=== PATIENT | male | born 1975 | race Caucasian/White ===

== ENCOUNTER 2016-09-14 01:07 | Emergency (ER) | payer BC, SELFPAY ==
[2016-09-14] MEDS ORDERED: Adacel (T-DAP) 0.5 ML VIAL ONE (01:17)
[2016-09-14] MEDS ORDERED: Lidocaine 1% w/Epinephrine 1:100K 20 ML VIAL ONE (01:18)
[2016-09-14] MEDS ORDERED: Bacitracin Zinc 1 Packet ONE (02:01)
--- NOTE | 2016-09-14 02:45 | PICIS ---
[facility] EMERGENCY RECORD TRIAGE (: KAS) TRIAGE NOTES: Laceration right forearm, Patient states he fell into a glass table. Bleeding controlled at this time. (: KASA) PATIENT: NAME: Morris Lynn, AGE: 41, GENDER: male, : [facility] 1975, TIME OF GREET: WedSep 14, 2016 01:08, PREFERRED LANGUAGE: Korean, ETHNICITY: Not or , ECODE BILLING MAP: [facility], SSN: [id number], Zip Code: [address], KG WEIGHT: [phone], PHONE: , , , PERSON ID: [id number], PCP: MD Bo Jacques. (: KASA) COMPLAINT: HURT HAND. (: KASA) ADMISSION: URGENCY: 4 Non Urgent, ADMISSION SOURCE: Home, TRANSPORT: CAR, BED: ER *TR1. (01: KASA) ASSESSMENT: Assessment: Laceration to right forearm, Symptoms began 09/14/2016. (01:15 KASA) PAIN: Patient complains of pain described as, aching, Location Right arm, Pain is constant, Onset was 09/14/2016, No aggravating factors, No efforts tried to relieve symptoms. (01:15 KASA) SIRS SCORING: Heart Rate 55-109 (0), Temp range 96.8-101.1 (0), respiratory rate 12-24 (0), Mental Status altered: no (0). (01:15 KASA) TRIAGE SCREENING: Patient denies suicidal ideation, Patient denies presence of domestic violence. (01:15 KASA) PROVIDERS: TRIAGE NURSE: Emily Yang RN. (01:09 KASA) VITAL SIGNS: BP 139/85, Pulse 102, Resp 22, Temp 98.0, (Oral), Pain 2, O2 Sat 96, on Room Air, Time 09/14/2016 01:11. (01:11 KASA) PREVIOUS VISIT ALLERGIES: No Known Drug Allergies. (01:09 KASA) No Known Drug Allergies. (01:15 KASA) KNOWN ALLERGIES No Known Drug Allergies CURRENT MEDICATIONS (01:35 KASA) lisinopril: TABLET : Strength - 20 mg : ORAL Patient Dose: 25 mg Oral 2 times a day. VITAL SIGNS (01:11 KASA) VITAL SIGNS: BP: 139/85, Pulse: 102, Resp: 22, Temp: 98.0 (Oral), Pain: 2, O2 sat: 96 on Room Air, Time: 09/14/2016 01:11. NURSING ASSESSMENT: EXTREMITY UPPER (:20 KASA) CONSTITUTIONAL: Patient arrives ambulatory, Gait steady, History obtained from patient, Patient appears comfortable, Patient cooperative, Patient alert, Oriented to person, place and time, Skin warm, Skin dry, Skin normal in color, Mucous membranes pink, Mucous membranes moist, Patient complains of Right FA laceration, Laceration right forearm, Patient states he fell into a glass &a-1R&a+25V*p+0X*s8740L*c202B*c15G*c2P*p-0X&a-25V&a+1R Name: Morris Lynn : 1975 M41 MedRec: [id number] AcctNum: [id number] Prepared: WedSep 14, 2016 02:29 by Interface Page 1 of 6 pMD [facility] EMERGENCY RECORD table. Bleeding controlled at this time. LEFT UPPER EXTREMITY: Left upper extremity assessment findings include capillary refill less than 2 seconds, Skin color normal to hand, Skin temperature to hand warm, Distal sensation intact. RIGHT UPPER EXTREMITY: Right upper extremity assessment findings include capillary refill less than 2 seconds, Skin color normal to hand, Skin temperature to hand warm, Distal sensation intact, Inspection findings include laceration, to Right Forearm, length (cm) 5, bleeding controlled, Tendon exposed. SAFETY: Side rails up, Cart/Stretcher in lowest position, Family at bedside, Call light within reach, Hospital ID band on. NURSING PROCEDURE: BEDSIDE RADIOLOGY (:25 KHER) PATIENT IDENTIFIER: Patient actively involved in identification process. BEDSIDE RADIOLOGY: Bedside radiology performed by MARCIA, Portable x-ray performed, of the right forearm. NURSING PROCEDURE: COMMUNICATIONS (:56 KASA) COMMUNICATIONS: Physician, Reason for notification Consult, Returned call at [phone], no orders received, Call received from [facility] with Dr. Nichols on the line to speak with SILVANA. NURSING PROCEDURE: DISCHARGE NOTE (02:15 [facility]) DISCHARGE: Patient discharged to home, ambulating without assistance, family driving, accompanied by parent, Summary of Care printed/ provided, Discharge instructions given to patient, Simple or moderate discharge teaching performed, . Educated and provided handout regarding diagnosis of: Laceration of forearm Follow up with PCP in 1-2 days. Follow up with Specialist is discussed/scheduled. Have sutures removed in 8-10 days., Notes: Ambulated independently out of department in NAD. RR even and unlabored, no sign of discomfort. BELONGINGS: Belongings and valuables with patient upon arrival to the Emergency Department include:, Belongings and valuables with patient at time of discharge include:, Belongings remain with patient, Valuables remain with patient. NURSING PROCEDURE: WOUND CARE (:08 [facility]) PATIENT IDENTIFIER: Patient actively involved in identification process, Patient's identity verified by patient stating name, Patient's identity verified by patient stating date. WOUND CARE: Wound care indicated to promote healing, Wound site: Rigt forearm, Cause of wound: Fall through glass table, Local infiltration with, 1% lidocaine with epinephrine, Wound cleansed with soap and water, Wound repaired with sutures, by Dr. Orta, using 1 &a-1R&a+25V*p+0X*b0838Y*c202B*c15G*c2P*p-0X&a-25V&a+1R Name: Morris yLnn : 1975 M41 MedRec: [id number] AcctNum: [id number] Prepared: WedSep 14, 2016 02:29 by Interface Page 2 of 6 pMD [facility] EMERGENCY RECORD pack of suture. FOLLOW-UP: After procedure, simple dressing applied, using ABD dressing, using telfa pad dressing, wrapped with 4 inch coban, After procedure, capillary refill less than 2 seconds, After procedure, distal circulation intact, After procedure, distal motor intact, After procedure, distal sensation intact, After procedure, distal pulses present, Notes: Post repair -wound periphery cleaned by nurse using NS and patted dry with gauze. SAFETY: Side rails up, Cart/Stretcher in lowest position, Call light within reach, Hospital ID band on. ORDER DETAILS Order Name: XR Forearm Rt 2 View STANDARD, Status: Active, Time: 01:19 09/14/2016, User: PMYE, - Ordered for: DO Orta Paul, - Entered by: DO Orta Paul - WedSep 14, 2016 01:19, - Quantity: 1. MEDICATION ADMINISTRATION SUMMARY Drug Name: Adacel(Tdap Adolesn/Adult)(PF), Dose Ordered: 0.5 mL, Route: Intramuscular, Status: Given, Time: 01:26 09/14/2016, Detailed record available in Medication Service section. MEDICATION SERVICE (01:26 PMYE) Adacel(Tdap Adolesn/Adult)(PF): Order: Adacel(Tdap Adolesn/Adult)(PF) (diphth,pertuss(acell),tet vac/preservative free) - Dose: 0.5 mL : Intramuscular Schedule: Now Ordered by: Tim Orta DO Entered by: Tim Orta DO WedSep 14, 2016 01:25 , Acknowledged by: Emily Yang RN WedSep 14, 2016 01:26 Documented as given by: Emily Yang RN WedSep 14, 2016 01:26 Patient, Medication, Dose, Route and Time verified prior to administration. 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 HPI LACERATION (02:04 PMYE) CHIEF COMPLAINT: Patient presents for evaluation of laceration to arm, on the right, 4.1-8.0cm in &a-1R&a+25V*p+0X*u9766L*c202B*c15G*c2P*p-0X&a-25V&a+1R Name: Morris Lynn : 1975 M41 MedRec: [id number] AcctNum: [id number] Prepared: WedSep 14, 2016 02:29 by Interface Page 3 of 6 pMD NIKI Skinner [facility] EMERGENCY RECORD length, through subcutaneous fascia, 4.1-8.0cm in length, through subcutaneous fascia. HISTORIAN: History provided by patient. MECHANISM OF INJURY: Mechanism of injury fall. LOCATION: Symptoms are localized. QUALITY: Laceration quality straight. SEVERITY: Maximum severity of symptoms mild, Currently symptoms are moderate. TIME COURSE: Sudden onset of symptoms. ASSOCIATED WITH: No associated symptoms. COMPLICATING FACTORS: No complicating factors, no risk for infection. EXACERBATED BY: Patient's condition exacerbated by nothing. RELIEVED BY: Patient's condition relieved by nothing. TETANUS: Tetanus status not up to date. ROS (02:05 PMYE) CONSTITUTIONAL: Negative constitutional review of systems, Historian denies chills, denies fatigue, denies fever. EYES: Negative eye review of systems, Historian denies eye pain, denies eye redness. ENT: Negative ears, nose, throat review of systems, Historian denies dysphasia, denies otalgia, denies sore throat. CARDIOVASCULAR: Negative cardiovascular review of systems, Historian denies chest pain, denies dyspnea on exertion, denies syncope. RESPIRATORY: Negative respiratory review of systems, Historian denies cough, denies shortness of breath, denies wheezing. GI: Negative gastrointestinal review of systems, Historian denies abdominal pain, denies nausea, denies vomiting. MUSCULOSKELETAL: Negative musculoskeletal review of systems, Historian denies back pain, denies neck pain. SKIN: Negative skin review of systems, Historian denies rash. NEUROLOGIC: Negative neurologic review of systems, Historian denies confusion, denies headache, denies paresthesias. PSYCHIATRIC: Negative psychiatric review of systems, Historian denies alcohol abuse, denies drug abuse, denies homicidal ideation, denies suicidal ideation. PAST MEDICAL HISTORY MEDICAL HISTORY: Past medical history includes history of hypertension, which has been treated, Patient is compliant, Past medical history includes history of obesity. (01:15 KASA) Tetanus immunization up to date, Date of immunization: 09/14/2016, Past medical history includes history of hypertension, which has been treated, Patient is compliant, Past medical history includes history of obesity. (01:37 KASA) MALE SURGICAL HISTORY: Surgical history of appendectomy. (01:15 KASA) PSYCHIATRIC HISTORY: No previous psychiatric history. (: KASA) &a-1R&a+25V*p+0X*g5472C*c202B*c15G*c2P*p-0X&a-25V&a+1R Name: Morris Lynn : 1975 M41 MedRec: [id number] AcctNum: [id number] Prepared: WedSep 14, 2016 02:29 by Interface Page 4 of 6 pMD [facility] EMERGENCY RECORD SOCIAL HISTORY: Patient is a former drug user, abused marijuana, abused methamphetamines, Drug history notes: Many years ago per patient, Patient currently uses tobacco, smokes cigarettes, daily, Patient has smoked for 25 years, Patient smokes 1.5 packs per day, Lives at home, with parents, Patient denies alcohol use,. (: KAS) PHYSICAL EXAM (02:05 PMYE) CONSTITUTIONAL: Vital signs reviewed, Patient afebrile, Pulse normal, Blood pressure normal, Respiratory rate normal. HEAD: Head exam normal, Head exam included findings of head atraumatic, normocephalic. EYES: Eye exam normal, Eye exam included findings of eyelids normal to inspection, Pupils equally round and reactive to light, Extraocular muscles intact. ENT: ENT exam normal, Pharynx exam normal, Uvula exam normal, Tonsil exam normal. NECK: Neck exam normal, Neck exam included findings of normal range of motion, Trachea midline. RESPIRATORY CHEST: Respiratory and chest exam normal, No wheezing, No rales, No rhonchi. CARDIOVASCULAR: Cardiovascular assessment normal, Cardiovascular exam included findings of heart rate regular rate and rhythm, Heart sounds normal. ABDOMEN MALE: Abdominal exam normal, Abdominal exam included findings of abdomen nontender, Bowel sounds normal. BACK: Back exam normal. NEURO: Neuro exam normal, Neuro exam findings include patient oriented to person, place and time, [place] coma scale 15, Speech normal. SKIN: Skin exam included findings of skin warm, dry, and normal in color, 6.0 CM laceration to distal forearm. through dermis and suq-q tissue. complete laceration to palmaris longus tendon. Full ROM to wrist and fingers. NV intact. Senation intact. PSYCHIATRIC: Psychiatric exam included findings of patient oriented to person place and time, Normal affect. EVENTS TRANSFER: Triage to Emergency Emergency Room *TR1. (WedSep 14, 2016 01:09 KASA) Removed from Emergency Emergency Room *TR1. (02:17 KASA) DOCTOR NOTES (02:09 PMYE) TEXT: Uneventful Laceration repair. Discussed care w/ Dr. Nichols of Hand surgery. Will f/u in office regarding tendon laceration. LACERATION-SINGLE REPAIR (02:07 PMYE) TIMEOUT: Side and/or site verified, Patient identification &a-1R&a+25V*p+0X*c2783I*c202B*c15G*c2P*p-0X&a-25V&a+1R Name: Morris Lynn : 1975 M41 MedRec: [id number] AcctNum: [id number] Prepared: WedSep 14, 2016 02:29 by Interface Page 5 of 6 pMD [facility] EMERGENCY RECORD confirmed, Sterile procedures observed. LACERATION REPAIR: Side and/or site verified, Patient identification confirmed, Sterile procedures observed, Verbal consent obtained, Local infiltration with, 1% LIDOCAINE with epinephrine, 3mL, Simple repair of laceration, to the extremity, right wrist, total length 6.0 cm, Skin layer closed, using 4.0, nylon suture, 5 sutures, interrupted, Tetanus status not up to date, tetanus immunization ordered, Patient tolerated the procedure well. PROBLEM LIST No recorded problems DIAGNOSIS (02:10 PMYE) FINAL: PRIMARY: laceration of forearm, ADDITIONAL: palmaris longus tendon laceration. DISPOSITION PATIENT: Disposition Type: Discharge, Disposition: *Discharge Home. (02:10 PMYE) Patient left the department. (02:17 KASA) INSTRUCTION (02:13 PMYE) DISCHARGE: EXTREMITY LACERATION. FOLLOWUP: MD Simone, Dhaval, [facility]oped[facility], [address] [facility] [address], , MD Anupam, Brayden, Family [facility], [address] [place] [id number], , Follow up with Primary Care Physician in 1-2 days, Follow up with Specialist as scheduled. SPECIAL: Follow-up with your PCP Have sutures removed in 8 - 10 days time. PRESCRIPTION No recorded prescriptions IMAGING TETANUS CONSENT: Image captured from scanner. (01:30 [facility]) *DISCHARGE INSTRUCTIONS RECEIPT: Image [facility] from scanner. [facility]02[facility]16 [facility] *SUPPLY CHARGE SHEET: Image captured from scanner. (02:17 [facility]) ADMIN (02:11 PMYE) DIGITAL SIGNATURE: DO Orta Paul. DO Orta Paul. Pike: EMMA=EDDIE Yang, Emily DELACRUZ=ROBERTO Andrade Kayce PMYE=DO Orta Paul &a-1R&a+25V*p+0X*b9935V*c202B*c15G*c2P*p-0X&a-25V&a+1R Name: Morris Lynn : 1975 M41 MedRec: [id number] AcctNum: [id number] Prepared: WedSep 14, 2016 02:29 by Interface Page 6 of 6 pMD MTDD
--- NOTE | 2016-09-14 02:45 | ERRECORD ---
[facility] EMERGENCY RECORD HPI LACERATION (02:04 PMYE) CHIEF COMPLAINT: Patient presents for evaluation of laceration to arm, on the right, 4.1-8.0cm in length, through subcutaneous fascia, 4.1-8.0cm in length, through subcutaneous fascia. HISTORIAN: History provided by patient. MECHANISM OF INJURY: Mechanism of injury fall. LOCATION: Symptoms are localized. QUALITY: Laceration quality straight. SEVERITY: Maximum severity of symptoms mild, Currently symptoms are moderate. TIME COURSE: Sudden onset of symptoms. ASSOCIATED WITH: No associated symptoms. COMPLICATING FACTORS: No complicating factors, no risk for infection. EXACERBATED BY: Patient's condition exacerbated by nothing. RELIEVED BY: Patient's condition relieved by nothing. TETANUS: Tetanus status not up to date. ROS (02:05 PMYE) CONSTITUTIONAL: Negative constitutional review of systems, Historian denies chills, denies fatigue, denies fever. EYES: Negative eye review of systems, Historian denies eye pain, denies eye redness. ENT: Negative ears, nose, throat review of systems, Historian denies dysphasia, denies otalgia, denies sore throat. CARDIOVASCULAR: Negative cardiovascular review of systems, Historian denies chest pain, denies dyspnea on exertion, denies syncope. RESPIRATORY: Negative respiratory review of systems, Historian denies cough, denies shortness of breath, denies wheezing. GI: Negative gastrointestinal review of systems, Historian denies abdominal pain, denies nausea, denies vomiting. MUSCULOSKELETAL: Negative musculoskeletal review of systems, Historian denies back pain, denies neck pain. SKIN: Negative skin review of systems, Historian denies rash. NEUROLOGIC: Negative neurologic review of systems, Historian denies confusion, denies headache, denies paresthesias. PSYCHIATRIC: Negative psychiatric review of systems, Historian denies alcohol abuse, denies drug abuse, denies homicidal ideation, denies suicidal ideation. PAST MEDICAL HISTORY MEDICAL HISTORY: Past medical history includes history of hypertension, which has been treated, Patient is compliant, Past medical history includes history of obesity. (01:15 KASA) Tetanus immunization up to date, Date of immunization: 09/14/2016, Past medical history includes history of hypertension, which has been treated, Patient is compliant, Past medical history includes history of obesity. (01:37 KASA) MALE SURGICAL HISTORY: Surgical history of &a-1R&a+25V*p+0X*a5913Y*c202B*c15G*c2P*p-0X&a-25V&a+1R Name: Morris Lynn : 1975 M41 MedRec: [id number] AcctNum: [id number] Prepared: WedSep 14, 2016 02:23 by Interface Page 1 of 3 pMD [facility] EMERGENCY RECORD appendectomy. (01:15 KASA) PSYCHIATRIC HISTORY: No previous psychiatric history. (01:15 KASA) SOCIAL HISTORY: Patient is a former drug user, abused marijuana, abused methamphetamines, Drug history notes: Many years ago per patient, Patient currently uses tobacco, smokes cigarettes, daily, Patient has smoked for 25 years, Patient smokes 1.5 packs per day, Lives at home, with parents, Patient denies alcohol use,. (:15 KASA) KNOWN ALLERGIES No Known Drug Allergies CURRENT MEDICATIONS (:35 KASA) lisinopril: TABLET : Strength - 20 mg : ORAL Patient Dose: 25 mg Oral 2 times a day. VITAL SIGNS (01:11 KASA) VITAL SIGNS: BP: 139/85, Pulse: 102, Resp: 22, Temp: 98.0 (Oral), Pain: 2, O2 sat: 96 on Room Air, Time: 09/14/2016 01:11. PHYSICAL EXAM (02:05 PMYE) CONSTITUTIONAL: Vital signs reviewed, Patient afebrile, Pulse normal, Blood pressure normal, Respiratory rate normal. HEAD: Head exam normal, Head exam included findings of head atraumatic, normocephalic. EYES: Eye exam normal, Eye exam included findings of eyelids normal to inspection, Pupils equally round and reactive to light, Extraocular muscles intact. ENT: ENT exam normal, Pharynx exam normal, Uvula exam normal, Tonsil exam normal. NECK: Neck exam normal, Neck exam included findings of normal range of motion, Trachea midline. RESPIRATORY CHEST: Respiratory and chest exam normal, No wheezing, No rales, No rhonchi. CARDIOVASCULAR: Cardiovascular assessment normal, Cardiovascular exam included findings of heart rate regular rate and rhythm, Heart sounds normal. ABDOMEN MALE: Abdominal exam normal, Abdominal exam included findings of abdomen nontender, Bowel sounds normal. BACK: Back exam normal. NEURO: Neuro exam normal, Neuro exam findings include patient oriented to person, place and time, [place] coma scale 15, Speech normal. SKIN: Skin exam included findings of skin warm, dry, and normal in color, 6.0 CM laceration to distal forearm. through dermis and suq-q tissue. complete laceration to palmaris longus tendon. Full ROM to wrist and fingers. NV intact. Senation intact. &a-1R&a+25V*p+0X*n9718F*c202B*c15G*c2P*p-0X&a-25V&a+1R Name: Morris Lynn : 1975 M41 MedRec: [id number] AcctNum: [id number] Prepared: WedSep 14, 2016 02:23 by Interface Page 2 of 3 pMD [facility] EMERGENCY RECORD PSYCHIATRIC: Psychiatric exam included findings of patient oriented to person place and time, Normal affect. MEDICATION ADMINISTRATION SUMMARY Drug Name: Adacel(Tdap Adolesn/Adult)(PF), Dose Ordered: 0.5 mL, Route: Intramuscular, Status: Given, Time: 01:26 09/14/2016, Detailed record available in Medication Service section. DOCTOR NOTES (02:09 PMYE) TEXT: Uneventful Laceration repair. Discussed care w/ Dr. Nichols of Hand surgery. Will f/u in office regarding tendon laceration. PROBLEM LIST No recorded problems DIAGNOSIS (02:10 PMYE) FINAL: PRIMARY: laceration of forearm, ADDITIONAL: palmaris longus tendon laceration. PRESCRIPTION No recorded prescriptions DISPOSITION PATIENT: Disposition Type: Discharge, Disposition: *Discharge Home. (02:10 PMYE) Patient left the department. (02:17 EMMA) Pike: EMMA=EDDIE Yang, Emily PMYE=DO Orta Paul &a-1R&a+25V*p+0X*o4239T*c202B*c15G*c2P*p-0X&a-25V&a+1R Name: Morris Lynn : 1975 M41 MedRec: [id number] AcctNum: [id number] Prepared: WedSep 14, 2016 02:23 by Interface Page 3 of 3 pMD MTDD
--- NOTE | 2016-09-14 08:38 | RAD ---
RIGHT FOREARM 2 VIEWS: Date: 09/14/16 HISTORY: Laceration to right forearm secondary to fall. FINDINGS: No evidence of fracture or osseous abnormality. IMPRESSION: No acute osseous abnormality. POS: QUINTONH
== END 2016-09-14 02:15 | disposition home or self-care (01) ==
LOC: NAV ERS 01:07
DX: S51.811A Laceration without foreign body of right forearm, initial encounter (principal); S66.921A Laceration of unspecified muscle, fascia and tendon at wrist and hand level, right hand, initial encounter; E66.9 Obesity, unspecified; I10 Essential (primary) hypertension; F17.210 Nicotine dependence, cigarettes, uncomplicated
CPT/HCPCS: 12002; 90471; 90715; J2001

== ENCOUNTER 2021-03-16 12:09 | Emergency (ER) | payer OTHER ==
[2021-03-16] MEDS ORDERED: Sodium Chloride 0.9% 1,000 ML ONE (12:30)
[2021-03-16 13:03] LABS: ALT (SGPT) 136 U/L (8-55); AST (SGOT) 166 U/L (5-34); Albumin 4.3 g/dL (3.5-5.0); Alkaline Phosphatase 78 U/L (40-110); Anion Gap 19 mmol/L (10-20); BUN (Urea Nitrogen) 25 mg/dL (8.9-20.6); Bilirubin, Total 1.4 mg/dL (0.2-1.2); Calc. Creatinine Clearance 0 mL/min (70-130); Calcium 9.7 mg/dL (7.8-10.44); Carbon Dioxide 20 mmol/L (22-29); Chloride 103 mmol/L (98-107); Globulin 3.4 g/dL (2.4-3.5); Glucose 136 mg/dL (70-105); Lipase 11 U/L (8-78); Potassium 3.8 mmol/L (3.5-5.1); Protein, Total 7.7 g/dL (6.0-8.3); Sodium 138 mmol/L (136-145)
[2021-03-16 13:07] LABS: Band 3 % (5-11); Hemoglobin 16.6 g/dL (14.0-18.0); Lymphocytes 9 % (21-51); MDiff Complete? YES; Mean Corpuscular HGB CONC 31.4 g/dL (32.0-36.0); Mean Corpuscular Hemoglobin 30.2 pg (27.0-31.0); Mean Corpuscular Volume 96.1 fL (78.0-98.0); Metamyelocyte 2 % (0-0); Monocytes 9 % (0-10); Myelocyte 1 % (0-0); Neutrophil 76 % (42-75); Platelet Count 221 thou/uL (130-400); Platelet Morphology Comment Appears Adequate; RBC Distribution Width 12.7 % (11.5-14.5); White Blood Cell (WBC) Count 14.7 thou/uL (4.8-10.8)
== END 2021-03-16 13:22 | disposition short-term general hospital (02) ==
LOC: NAV ERS 12:09
DX: R10.31 Right lower quadrant pain (principal); I10 Essential (primary) hypertension; F17.210 Nicotine dependence, cigarettes, uncomplicated; Z79.899 Other long term (current) drug therapy
CPT/HCPCS: 80053; 83605; 83690; 85025; 99284; J7050